=== PATIENT | male | born 1955 | race Caucasian/White ===

== ENCOUNTER 2019-12-18 15:42 | Observation (INO) | payer MEDICAID, OTHER ==
[~2019-12-18] VITALS: Ht 175.3 cm; Wt 52.7 kg
[2019-12-18] MEDS ORDERED: PLEASE ENTER HEIGHT AND WEIGHT MC SCH (15:51)
[2019-12-18] MEDS ORDERED: SODIUM CHLORIDE 0.9% 1,000ML IVBOLUS ONE (16:00)
[2019-12-18] MEDS ORDERED: SODIUM CHLORIDE FLUSH 10ML SYR IVF ONE (16:00)
[2019-12-18 16:02] LABS: BASOPHILS # (AUTO) 0.09 x10^3/uL (0-0.1); BASOPHILS % (AUTO) 1 % (0-1); EOSINOPHILS # (AUTO) 0.43 x10^3/uL (0-0.4); EOSINOPHILS % (AUTO) 4 % (1-7); LYMPHOCYTES # (AUTO) 4.02 x10^3/uL (1-3.4); LYMPHOCYTES % (AUTO) 36 % (22-44); MD NO; MEAN CORPUSCULAR HEMOGLOBIN 32.3 pg (27.5-34.5); MEAN CORPUSCULAR HGB CONC 32.5 g/dL (33.2-36.2); MEAN CORPUSCULAR VOLUME 99.4 fL (81-97); MEAN PLATELET VOLUME 7.5 fL (7.4-10.4); MONOCYTES # (AUTO) 0.93 x10^3/uL (0.2-0.8); MONOCYTES % (AUTO) 8 % (2-9); NEUTROPHILS # (AUTO) 5.63 x10^3/uL (1.8-6.8); NEUTROPHILS % (AUTO) 51 % (42-75); PLATELET COUNT 349 x10^3/uL (130-400); RED BLOOD COUNT 3.51 x10^6/uL (4.38-5.82); RED CELL DISTRIBUTION WIDTH 14.3 % (9.4-14.8)
[2019-12-18 16:11] LABS: ALANINE AMINOTRANSFERASE 19 U/L (12-78); ALBUMIN 2.6 g/dL (3.4-5.0); ANION GAP 10 mmol/L (5-15); CHLORIDE 105 mmol/L (98-107); CREATININE 0.92 mg/dL (0.7-1.3)
[2019-12-18 16:16] LABS: ALKALINE PHOSPHATASE 55 U/L (45-117); BILIRUBIN,TOTAL 0.2 mg/dL (0.2-1.0); TOTAL PROTEIN 6.4 g/dL (6.4-8.2); TROPONIN I < 0.015 ng/mL (0.000-0.045)
--- NOTE | 2019-12-18 16:54 | NUR ---
PT REPORT FROM ZELDA HILLMAN. PT MOVED FROM TRAUMA ROOM TO ED ROOM 20. DR ALBERT AT BS.
[2019-12-18] MEDS ORDERED: hypertension med (16:56)
[2019-12-18] MEDS ORDERED: SODIUM CHLORIDE 0.9% 1,000 ML IV SCH (16:58)
[2019-12-18] MEDS ORDERED: PROMETHAZINE 25 MG/ML, 1ML IM PRN (17:00)
[2019-12-18] MEDS ORDERED: LABETALOL 5MG/ML, 20ML IVPush PRN (17:00)
[2019-12-18] MEDS ORDERED: hydrALAzine 20 MG/ML, 1ML IVPush PRN (17:00)
[2019-12-18] MEDS ORDERED: DIPH,PERTUSS(ACELL),TET VAC/PF 0.5 ML IM-VACC ONE ×2 (17:00→17:08)
[2019-12-18] MEDS ORDERED: ONDANSETRON 2MG/ML, 2ML IVPush PRN (17:00)
[2019-12-18] MEDS ORDERED: ACETAMINOPHEN 325 MG TABLET PO PRN (17:00)
[2019-12-18] MEDS ORDERED: ASA/APAP/ CAFFEINE TABLET PO PRN (17:00)
[2019-12-18] MEDS ORDERED: HEPARIN 5,000 UNITS/ML, 1ML ONE (17:08)
--- NOTE | 2019-12-18 17:10 | NUR ---
PT SITTING ON GURNEY, A&OX4, RESP EVEN & UNLABORED, SPEECH CLEAR. REPORTS FEELING SLEEPY. LAC TO POSTERIOR HEAD; AWAITING CT. TD STATUS UNKNOWN TO PT. IV: 20G LT FA, 18G RAC. LAB AT FOR ADDITIONAL DRAW.
[2019-12-18] MEDS: HEPARIN 5,000 UNITS/ML, 1ML SQ SCH (17:24)
--- NOTE | 2019-12-18 17:25 | NUR ---
TDAP AND HEPARIN GIVEN PER EMAR.
--- NOTE | 2019-12-18 17:26 | NUR ---
TO CT PER DONNA
[2019-12-18] MEDS ORDERED: NICOTINE 14MG/24 HR PATCH.TD24 TD ONE (17:30)
--- NOTE | 2019-12-18 17:31 | NUR ---
PT REPORT TO ZELDA PADILLA FOR ROOM 509-1
[2019-12-18 17:50] LABS: TROPONIN I < 0.015 ng/mL (0.000-0.045)
[2019-12-18] MEDS ORDERED: NICOTINE 14MG/24 HR PATCH.TD24 ONE (18:12)
--- NOTE | 2019-12-18 18:30 | NUR ---
PT REPORT TO SUKI MERRILL RN. PT CARE TRANSFERRED. LAC CARE COMPLETED PER DR JUNG. PT AWAITING TRANFER TO FLOOR
[2019-12-18 19:30] VITALS: BP 149/74
[2019-12-18 19:58] VITALS: BP_SYST 131; BP_SYST 144; BP_SYST 147; BP_DIAS 71; BP_DIAS 78; BP_DIAS 88
[2019-12-19 00:49] LABS: TROPONIN I < 0.015 ng/mL (0.000-0.045)
[2019-12-19 01:48] VITALS: BP 159/83
[2019-12-19 01:50] VITALS: BP 148/75
[2019-12-19 01:51] VITALS: BP 134/79
[2019-12-19] MEDS: HEPARIN 5,000 UNITS/ML, 1ML SQ SCH ×2 (01:59→10:27)
[2019-12-19 05:03] LABS: BASOPHILS % (AUTO) 1 % (0-1); EOSINOPHILS # (AUTO) 0.33 x10^3/uL (0-0.4); EOSINOPHILS % (AUTO) 4 % (1-7); LYMPHOCYTES # (AUTO) 2.18 x10^3/uL (1-3.4); LYMPHOCYTES % (AUTO) 27 % (22-44); MD NO; MEAN CORPUSCULAR HEMOGLOBIN 32.4 pg (27.5-34.5); MEAN CORPUSCULAR HGB CONC 32.5 g/dL (33.2-36.2); MEAN CORPUSCULAR VOLUME 99.7 fL (81-97); MEAN PLATELET VOLUME 8.4 fL (7.4-10.4); MONOCYTES # (AUTO) 0.82 x10^3/uL (0.2-0.8); MONOCYTES % (AUTO) 10 % (2-9); NEUTROPHILS # (AUTO) 4.64 x10^3/uL (1.8-6.8); NEUTROPHILS % (AUTO) 58 % (42-75); PLATELET COUNT 291 x10^3/uL (130-400); RED BLOOD COUNT 3.37 x10^6/uL (4.38-5.82); RED CELL DISTRIBUTION WIDTH 14.3 % (9.4-14.8)
[2019-12-19 05:12] LABS: ALBUMIN 2.3 g/dL (3.4-5.0); ANION GAP 6 mmol/L (5-15); CHLORIDE 113 mmol/L (98-107)
[2019-12-19 05:18] LABS: ALANINE AMINOTRANSFERASE 14 U/L (12-78); ALKALINE PHOSPHATASE 56 U/L (45-117); BILIRUBIN,TOTAL 0.5 mg/dL (0.2-1.0); CREATININE 0.74 mg/dL (0.7-1.3); TOTAL PROTEIN 5.8 g/dL (6.4-8.2); TROPONIN I < 0.015 ng/mL (0.000-0.045)
[2019-12-19 07:44] VITALS: BP 127/75
[2019-12-19] MEDS ORDERED: POTASSIUM CHLORIDE 20 MEQ TAB.ER.PRT PO SCH (08:00)
[2019-12-19 14:00] VITALS: BP 149/80
[2019-12-19] MEDS ORDERED: SODIUM CHLORIDE 0.9% 1,000 ML IV SCH (16:58)
[2019-12-19] MEDS ORDERED: ATOR-2 PO (17:48)
== END 2019-12-19 19:05 | disposition home or self-care (01) ==
LOC: ED 16:40 → EDIP 18:59 → INTOOBSV 18:59 → 5SO 19:34
PROVIDERS: ADMIT Student in an Organized Health Care Education/Training Program; ATTEND Internal Medicine
DX: R55 Syncope and collapse (principal); I95.2 Hypotension due to drugs; E87.6 Hypokalemia; D72.829 Elevated white blood cell count, unspecified; D53.9 Nutritional anemia, unspecified; I10 Essential (primary) hypertension; I70.90 Unspecified atherosclerosis; L03.90 Cellulitis, unspecified; F12.90 Cannabis use, unspecified, uncomplicated; T50.995A Adverse effect of other drugs, medicaments and biological substances, initial encounter; Z23 Encounter for immunization; Z59.0 Homelessness; Z66 Do not resuscitate; Z87.891 Personal history of nicotine dependence
CPT/HCPCS: 36415; 70450; 71045; 80053; 82533; 82607; 84443; 84484; 85025; 90471; 90715; 93005; 93306; 93880; 96360; 96372; 97161; 99285; G0378; J1644; J7030